=== PATIENT | female | born 1955 | race African-American/Black ===

== ENCOUNTER → 2020-09-30 | Outpatient (CLI) | payer MEDICARE, OTHER ==
[~2020-09-30] MED LIST: ATORVASTATIN CA40 MG PO; CELEBREX 200MG200 MG PO; CYCLOBENZAPRINE10 MG PO; EPIPEN 2-P0.3 MG/0.3 SC; GLUCOPHAGE 500500 MG PO; HYDROCHLOROTHIA25 MG PO; KEFLEX500 MG PO; LEVOCETIRIZINE D5 MG PO; LIDOCAINE PAIN1 EACH TD; LORCET 5-325 M1 EACH PO; NEXIUM40 MG PO; NORVASC 5 MG TAB5 MG PO; PAXIL20 MG PO; PERCOCET 5-3251 EACH PO; PROMETHAZINE HC25 M1 PO; SINGULAIR10 MG PO; STEGLATRO15 MG PO; VITAMIN D350000 UNIT PO
== END ==
LOC: RAD 11:02
DX: M25.511 Pain in right shoulder (principal); M19.011 Primary osteoarthritis, right shoulder
CPT/HCPCS: 73030

== ENCOUNTER → 2021-12-08 | Outpatient (CLI) | payer MEDICARE, OTHER | LOC: KOH-I 11:08 | DX: M25.561 Pain in right knee (principal); M17.11 Unilateral primary osteoarthritis, right knee; M75.41 Impingement syndrome of right shoulder; M75.21 Bicipital tendinitis, right shoulder; S43.491A Other sprain of right shoulder joint, initial encounter | CPT/HCPCS: 73221; 73560 ==